=== PATIENT | female | born 1995 | race American Indian/Alaskan Native ===

== ENCOUNTER 2017-05-22 11:08 | Emergency (ER) | payer MEDICAID ==
[2017-05-22 11:12] VITALS: BP 111/67
[2017-05-22] MEDS ORDERED: BICILLIN L-A IM ONE (12:40)
--- NOTE | 2017-05-22 12:40 | Emergency Department Report ---
Chief Complaint: Sore Throat Stated Complaint: SORE THROAT Time Seen by Provider: 05/22/17 12:29 - HPI History of Present Illness: Patient is a 22-year-old female who is presenting with sore throat. Patient states her throat has been hurting for approximately a week. Patient has a minor cough is nonproductive. Patient has had chills but has not taken her temperature. Patient states she looked in her throat and saw white patches and was concerned and that's the reason she came in today. Patient has had difficulty swallowing the pain is 5 out of 10 in severity. Patient has no other complaints no nausea vomiting diarrhea body aches at this time. - ROS Review of Systems: History of systems is negative except for those elements in the HPI - Exam Vital Signs: Vital Signs 05/22/17 11:10 Temperature 98.2 F Pulse Rate 84 Respiratory 16 Rate Blood Pressure 111/67 O2 Sat by Pulse 99 Oximetry Physical Exam: Focused physical exam general patient is alert and oriented 3 in no acute distress HEENT patient has tonsillar swelling erythema with white patchy exudates as well as a petechiae on her hard palate. Anterior cervical lymph nodes are palpable. Lungs clear to auscultation bilaterally heart S1-S2 no murmurs gallops or rubs. Abdomen is soft nontender. Neuro exam is normal. MSE screening note: Focused history and physical exam performed. Due to findings the following was ordered: Patient be given Bicillin shot and will be discharged home ED Medical Decision Making - Medical Decision Making Patient is a 22-year-old female who is presenting with Centor score of 4 and will be empirically treated for strep ED Disposition for MSE Clinical Impression: Exudative pharyngitis Disposition: DC- TO HOME OR SELFCARE Is pt being admited?: No Does the pt Need Aspirin: No Condition: Fair Instructions: Strep Throat (ED) Prescriptions: HYDROcodone/APAP 7.5-325 [[place]] 15 ml PO Q4HR PRN #150 oz PRN Reason: Pain Referrals: JESSICA WILEY MD [Primary Care Provider] - 3-5 Days
[2017-05-22] MEDS ORDERED: DECADRON IM ONE (12:41)
== END 2017-05-22 13:16 | disposition home or self-care (01) ==
LOC: EDBD → ED 11:08
DX: J02.9 Acute pharyngitis, unspecified (principal); R05 Cough
CPT/HCPCS: 96372; 99282; J0561; J1100

== ENCOUNTER 2017-05-26 10:35 | Emergency (ER) | payer MEDICAID ==
[2017-05-26 10:43] VITALS: BP 102/63
--- NOTE | 2017-05-26 13:19 | Emergency Department Report ---
ED ENT HPI - General Chief complaint: Sore Throat Stated complaint: SORE THROAT Time Seen by Provider: 05/26/17 12:09 Source: patient Mode of arrival: Ambulatory Limitations: No Limitations - History of Present Illness Initial comments: This a 22-year-old female nontoxic, well nourished in appearance, no acute signs of distress presents to the ED with c/o of sore throat 1 week. Patient describes her throat as aching with level of 8 out of 10. Patient denies any difficulty breathing, drooling, hoarseness, fever, chills, nausea, vomiting, chest pain, shortness of breath, headache or stiff neck. Patient denies any drug allergies. Denies significant past medical history. MD complaint: sore throat -: Gradual, week(s) (1) Location: throat Severity: mild Severity scale (0 -10): 8 Quality: aching Consistency: constant Improves with: none Worsens with: swallowing Associated Symptoms: pain with swallowing, sore throat. denies: fever, cough, gum swelling, toothache, tinnitus, hearing loss, discharge from ear, rhinorrhea - Related Data Home Medications Medication Instructions Recorded Confirmed Last Taken Ranitidine HCl [Ranitidine 150mg 150 mg PO BID 06/10/14 06/10/14 06/09/14 Cap] Previous Rx's Medication Instructions Recorded Last Taken Type Benzonatate [Tessalon Perles] 100 mg PO Q8HR #20 capsule 06/10/14 Unknown Rx Naproxen [Naprosyn TAB] 500 mg PO BID #20 tablet 06/10/14 Unknown Rx HYDROcodone/APAP 7.5-325 [[place]] 15 ml PO Q4HR PRN #150 oz 05/22/17 Unknown Rx Amoxicillin/K Clav Tab [Augmentin 1 tab PO Q12HR #20 tab 05/26/17 Unknown Rx 875 mg] Nystas/Diphen/Xyl Visc/Mylanta 15 ml MM Q6H 10 Days udc 05/26/17 Unknown Rx [Magic Mouthwash] Allergies Allergy/AdvReac Type Severity Reaction Status Date / Time lactase [From Dairy Aid] Allergy Itching Verified 06/10/14 01:04 ED Dental HPI - General Chief complaint: Sore Throat Stated complaint: SORE THROAT Time Seen by Provider: 05/26/17 12:09 Source: patient Mode of arrival: Ambulatory Limitations: No Limitations - Related Data Home Medications Medication Instructions Recorded Confirmed Last Taken Ranitidine HCl [Ranitidine 150mg 150 mg PO BID 06/10/14 06/10/14 06/09/14 Cap] Previous Rx's Medication Instructions Recorded Last Taken Type Benzonatate [Tessalon Perles] 100 mg PO Q8HR #20 capsule 06/10/14 Unknown Rx Naproxen [Naprosyn TAB] 500 mg PO BID #20 tablet 06/10/14 Unknown Rx HYDROcodone/APAP 7.5-325 [[place]] 15 ml PO Q4HR PRN #150 oz 05/22/17 Unknown Rx Amoxicillin/K Clav Tab [Augmentin 1 tab PO Q12HR #20 tab 05/26/17 Unknown Rx 875 mg] Nystas/Diphen/Xyl Visc/Mylanta 15 ml MM Q6H 10 Days udc 05/26/17 Unknown Rx [Magic Mouthwash] Allergies Allergy/AdvReac Type Severity Reaction Status Date / Time lactase [From Dairy Aid] Allergy Itching Verified 06/10/14 01:04 ED Review of Systems ROS: Stated complaint: SORE THROAT Other details as noted in HPI Constitutional: denies: chills, fever Eyes: denies: eye pain, eye discharge, vision change ENT: throat pain. denies: ear pain Respiratory: denies: cough, shortness of breath, wheezing Cardiovascular: denies: chest pain, palpitations Endocrine: no symptoms reported Gastrointestinal: denies: abdominal pain, nausea, diarrhea Genitourinary: denies: urgency, dysuria, discharge Musculoskeletal: denies: back pain, joint swelling, arthralgia Skin: denies: rash, lesions Neurological: denies: headache, weakness, paresthesias Psychiatric: denies: anxiety, depression Hematological/Lymphatic: denies: easy bleeding, easy bruising ED Past Medical Hx - Past Medical History Previous Medical History?: Yes Additional medical history: -26 weeks gestation. Crohn's disease- takes Remicade [id number] - Surgical History Past Surgical History?: No - Social History Smoking Status: Never Smoker Substance Use Type: None - Medications Home Medications: Home Medications Medication Instructions Recorded Confirmed Last Taken Type Benzonatate [Tessalon Perles] 100 mg PO Q8HR #20 capsule 06/10/14 Unknown Rx Naproxen [Naprosyn TAB] 500 mg PO BID #20 tablet 06/10/14 Unknown Rx Ranitidine HCl [Ranitidine 150mg 150 mg PO BID 06/10/14 06/10/14 06/09/14 History Cap] HYDROcodone/APAP 7.5-325 [[place]] 15 ml PO Q4HR PRN #150 oz 05/22/17 Unknown Rx Amoxicillin/K Clav Tab [Augmentin 1 tab PO Q12HR #20 tab 05/26/17 Unknown Rx 875 mg] Nystas/Diphen/Xyl Visc/Mylanta 15 ml MM Q6H 10 Days udc 05/26/17 Unknown Rx [Magic Mouthwash] ED Physical Exam - General Limitations: No Limitations General appearance: alert, in no apparent distress - Head Head exam: Present: atraumatic, normocephalic, normal inspection - Eye Eye exam: Present: normal appearance, PERRL, EOMI. Absent: scleral icterus, conjunctival injection, nystagmus, periorbital swelling, periorbital tenderness Pupils: Present: normal accommodation - ENT ENT exam: Present: mucous membranes moist, TM's normal bilaterally, normal external ear exam - Expanded ENT Exam Expanded Ear exam: Present: normal external inspection Mouth exam: Present: normal external inspection, tongue normal. Absent: drooling, trismus, muffled voice, tongue elevation, laceration Teeth exam: Present: normal inspection Throat exam: Positive: tonsillar erythema, tonsillomegaly (2+), tonsillar exudate, other (Uvula midline. No abscess or swelling). Negative: R peritonsillar mass, L peritonsillar mass - Neck Neck exam: Present: normal inspection, full ROM. Absent: tenderness, meningismus, lymphadenopathy, thyromegaly - Respiratory Respiratory exam: Present: normal lung sounds bilaterally. Absent: respiratory distress, wheezes, rales, rhonchi, stridor, chest wall tenderness, accessory muscle use, decreased breath sounds, prolonged expiratory - Cardiovascular Cardiovascular Exam: Present: regular rate, normal rhythm, normal heart sounds. Absent: bradycardia, tachycardia, irregular rhythm, systolic murmur, diastolic murmur, rubs, gallop - GI/Abdominal GI/Abdominal exam: Present: soft, normal bowel sounds. Absent: distended, tenderness, guarding, rebound, rigid, diminished bowel sounds - Rectal Rectal exam: Present: deferred - Extremities Exam Extremities exam: Present: normal inspection, full ROM, normal capillary refill. Absent: tenderness, pedal edema, joint swelling, calf tenderness - Back Exam Back exam: Present: normal inspection, full ROM. Absent: tenderness, CVA tenderness (R), CVA tenderness (L), muscle spasm, paraspinal tenderness, vertebral tenderness, rash noted - Neurological Exam Neurological exam: Present: alert, oriented X3, CN II-XII intact, normal gait, reflexes normal - Psychiatric Psychiatric exam: Present: normal affect, normal mood - Skin Skin exam: Present: warm, dry, intact, normal color. Absent: rash ED Course Vital Signs 05/26/17 10:41 Temperature 98.3 F Pulse Rate 85 Respiratory 16 Rate Blood Pressure 102/63 O2 Sat by Pulse 100 Oximetry - Reevaluation(s) Reevaluation #1: 05/26/17 13:18 Patient is speaking in full sentences with no signs of distress noted. Critical care attestation.: If time is entered above; I have spent that time in minutes in the direct care of this critically ill patient, excluding procedure time. ED Disposition Clinical Impression: Tonsillitis with exudate Disposition: DC-01 TO HOME OR SELFCARE Is pt being admited?: No Does the pt Need Aspirin: No Condition: Stable Instructions: Tonsillitis (ED), Amoxicillin/Clavulanate Potassium (By mouth) Additional Instructions: Follow-up with a primary care doctor/ENT doctor in 3-5 days or if symptoms worsen and continue return to emergency room as soon as possible. Prescriptions: Amoxicillin/K Clav Tab [Augmentin 875 mg] 1 tab PO Q12HR #20 tab Nystas/Diphen/Xyl Visc/Mylanta [Magic Mouthwash] 15 ml MM Q6H 10 Days udc Referrals: JESSICA WILEY MD [Primary Care Provider] - 3-5 Days SHAILA MITCHELL MD [Staff Physician] - 3-5 Days MARTITA VALENTINE MD [Staff Physician] - 3-5 Days [facility] [Outside] - 3-5 Days [facility] [Outside] - 3-5 Days Forms: Work/School Release Form(ED)
== END 2017-05-26 13:40 | disposition home or self-care (01) ==
LOC: EDBD → ED 10:35
DX: J03.90 Acute tonsillitis, unspecified (principal)
CPT/HCPCS: 99282

== ENCOUNTER 2018-10-03 16:07 | Emergency (ER) | payer OTHER ==
[2018-10-03 17:21] LABS: Hematocrit 36.1 % (30.3-42.9); Hemoglobin 11.6 gm/dl (10.1-14.3); Mean Corpuscular HGB Conc 32 % (30-34); Mean Corpuscular Volume 78 fl (79-97); Platelet Count 318 K/mm3 (140-440); Red Blood Count 4.64 M/mm3 (3.65-5.03); Red Cell Distribution Width 15.4 % (13.2-15.2)
[2018-10-03 17:24] LABS: BUN/Creatinine Ratio 15; Blood Urea Nitrogen 15 mg/dL (7-17); Calcium 9.1 mg/dL (8.4-10.2); Hemolysis Index 0
--- NOTE | 2018-10-03 18:01 | Cat Scan Report ---
CT HEAD/BRAIN WO CON CLINICAL INDICATION: Female, 23 years of age. syncope, +LOC COMPARISON: None TECHNIQUE: Contiguous axial images were obtained from the vertex through the skull base.This CT exam was perform ed using one or more of the following dose reduction techniques: automated exposure control, adjustme nt of the mA and/or kV according to patient size, or use of iterative reconstruction technique. FINDINGS: No acute intracranial hemorrhage, midline shift, or extra-axial fluid collection. Ventricles and cis terns are normal in size and configuration for the patient's age. Frausto white differentiation is main tained. Calvarium is grossly intact. Visualized ocular globes are grossly unremarkable. Benign calc ification along the falx. Minimal mucosal thickening in the visualized ethmoid air cells. Mastoid air cells are clear. IMPRESSION: No grossly acute intracranial abnormality. This document is electronically signed by Carlos Hernandes DO., October 03 2018 05:59:11 PM ET
[2018-10-03] MEDS ORDERED: ZOFRAN ODT PO ONE (19:32)
[2018-10-03 20:00] LABS: Bilirubin,Urine NEG (Negative); Blood,Urine NEG (Negative); Color,Urine Yellow (Yellow); Mucus,Urine FEW /HPF; Protein,Urine <15 mg/dL mg/dL (Negative)
[2018-10-03 20:05] LABS: HCG Qualitative,Urine Negative (Negative)
--- NOTE | 2018-10-03 20:08 | Emergency Department Report ---
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 last Marijuana use was this am. there is no cp no n/v no dizziness or lightheadedness at this time. Onset/Timin -: hour(s) Radiation: non-radiation Severity scale (0 -10): 0 Improves with: rest Worsens with: movement Associated Symptoms: other (dizziness ) Treatments Prior to Arrival: none - Related Data Previous Rx's Medication Instructions Recorded Last Taken Type Ranitidine HCl [Zantac 150 MG TAB] 150 mg PO DAILY #30 tablet 05/13/18 Unknown Rx predniSONE [Deltasone] 10 mg PO QDAY #5 tab 05/13/18 Unknown Rx Fluticasone [Flonase] 1 spray NS QDAY #1 bottle 10/03/18 Unknown Rx Loratadine 10 mg PO DAILY #30 capsule 10/03/18 Unknown Rx Allergies Allergy/AdvReac Type Severity Reaction Status Date / Time lactase [From Dairy Aid] Allergy Itching Verified 10/03/18 16:08 ED Review of Systems ROS: Stated complaint: SYNCOPY Other details as noted in HPI Constitutional: malaise. denies: chills, fever Eyes: denies: eye pain, eye discharge, vision change ENT: as per HPI Respiratory: denies: cough, shortness of breath, wheezing Cardiovascular: denies: chest pain, palpitations Endocrine: no symptoms reported Gastrointestinal: denies: abdominal pain, nausea, vomiting, diarrhea Genitourinary: denies: urgency, dysuria, discharge, abnormal menses, dyspareunia Musculoskeletal: denies: back pain, joint swelling, arthralgia Skin: denies: rash, lesions Neurological: denies: headache, weakness, paresthesias, vertigo Psychiatric: denies: anxiety, depression Hematological/Lymphatic: denies: easy bleeding, easy bruising ED Past Medical Hx - Past Medical History Additional medical history: Crohn's - Surgical History Additional Surgical History: eyes - Social History Smoking Status: Never Smoker Substance Use Type: Marijuana - Medications Home Medications: Home Medications Medication Instructions Recorded Confirmed Last Taken Type Ranitidine HCl [Zantac 150 MG TAB] 150 mg PO DAILY #30 tablet 05/13/18 Unknown Rx predniSONE [Deltasone] 10 mg PO QDAY #5 tab 05/13/18 Unknown Rx Fluticasone [Flonase] 1 spray NS QDAY #1 bottle 10/03/18 Unknown Rx Loratadine 10 mg PO DAILY #30 capsule 10/03/18 Unknown Rx ED Physical Exam - General Limitations: No Limitations General appearance: alert, in no apparent distress - Head Head exam: Present: atraumatic, normocephalic - Eye Eye exam: Present: normal appearance, PERRL, EOMI Pupils: Present: normal accommodation - ENT ENT exam: Present: normal orophraynx, mucous membranes moist, TM's normal bila terally, normal external ear exam - Neck Neck exam: Present: normal inspection, full ROM. Absent: tenderness, meningismus, lymphadenopathy, thyromegaly - Respiratory Respiratory exam: Present: normal lung sounds bilaterally. Absent: respiratory distress, wheezes, stridor, chest wall tenderness - Cardiovascular Cardiovascular Exam: Present: regular rate, normal rhythm, normal heart sounds. Absent: systolic murmur, diastolic murmur, rubs, gallop - GI/Abdominal GI/Abdominal exam: Present: soft, normal bowel sounds. Absent: tenderness, br uit, hernia - Rectal Rectal exam: Present: deferred - Extremities Exam Extremities exam: Present: normal inspection, full ROM, normal capillary refill. Absent: tenderness, pedal edema, joint swelling, calf tenderness - Back Exam Back exam: Present: normal inspection, full ROM. Absent: tenderness, CVA tenderness (R), CVA tenderness (L), muscle spasm, paraspinal tenderness, verteb ral tenderness, rash noted - Neurological Exam Neurological exam: Present: alert, oriented X3, CN II-XII intact, normal gait, reflexes normal - Expanded Neurological Exam Expanded Patient oriented to: Present: person, place, time Speech: Present: fluid speech Cranial nerves: EOM's Intact: Normal, Gag Reflex: Normal, Tongue Deviation: Normal, Nystagmus: Normal, Facial Sensation: Normal, Facial Palsy with Forehead Movement: Normal Cerebellar function: Finger to Nose: Normal, Heel to Conner: Normal, Romberg: Normal Upper motor neuron: Tres Neglect: Normal, Pronator Drift: Normal, Babinski Sign: Normal, Sensory Extinction: Normal Sensory exam: Upper Extremity Light Touch: Normal, Upper Extremity Pin Prick: Normal, Upper Extremity Temperature: Normal, UE 2 Point Discrimination: Normal, Lower Extremity Light Touch: Normal, Lower Extremity Pin Prick: Normal, Lower Extremity Temperature: Normal, LE 2 Point Discrimination: Normal Motor strength exam: RUE: 5, LUE: 5, RLE: 5, LLE: 5 DTR: bicep (R): 2+, bicep (L): 2+, ankle (R): 2+, ankle (L): 2+ Best Eye Response (Jerry): (4) open spontaneously Best Motor Response (Jerry): (6) obeys commands Best Verbal Response ([place]): (5) oriented [place] Total: 15 - Psychiatric Psychiatric exam: Present: normal affect, normal mood - Skin Skin exam: Present: warm, dry, intact, normal color. Absent: rash ED Course Vital Signs 10/03/18 16:20 Temperature 97.7 F Pulse Rate 92 H Respiratory 18 Rate Blood Pressure 119/63 ED Medical Decision Making - Lab Data Result diagrams: 10/03/18 16:51 10/03/18 16:51 Labs 10/03/18 10/03/18 10/03/18 16:51 16:51 19:36 WBC 9.3 RBC 4.64 Hgb 11.6 Hct 36.1 MCV 78 L MCH 25 L MCHC 32 RDW 15.4 H Plt Count 318 Sodium 140 Potassium 3.9 Chloride 104.3 Carbon Dioxide 25 Anion Gap 15 BUN 15 Creatinine 1.0 Estimated GFR > 60 BUN/Creatinine Ratio 15 Glucose 65 Calcium 9.1 Urine Color Yellow Urine Turbidity Slightly-cloudy Urine pH 7.0 Ur Specific [place] 1.023 Urine Protein <15 mg/dl Urine Glucose (UA) Neg Urine Ketones Neg Urine Blood Neg Urine Nitrite Neg Urine Bilirubin Neg Urine Urobilinogen 2.0 Ur Leukocyte Esterase Neg Urine WBC (Auto) 3.0 Urine RBC (Auto) 1.0 U Epithel Cells (Auto) 2.0 Urine Mucus Few Urine HCG, Qual Negative - EKG Data EKG shows normal: sinus rhythm, axis, intervals, QRS complexes, ST-T waves Rate: normal - EKG Data When compared to previous EKG there are: previous EKG unavailable Interpretation: normal EKG (ekg interp by ed attending NSR no ST Elevated [place], no ectopy) - Radiology Data Radiology results: report reviewed, image reviewed Findings [facility] [address] [place] [address] Cat Scan Report Signed Patient: DEEMTRICE FLORES MR#: [id number] : 1995 Acct:[id number] Age/Sex: 23 / F ADM Date: 10/03/18 Loc: ED Attending Dr: Ordering Physician: MERISSA URIARTE MD Date of Service: 10/03/18 Procedure(s): CT head/brain wo con Accession Number(s): [id number] cc: MERISSA URIARTE MD CT HEAD/BRAIN WO CON CLINICAL INDICATION: Female, 23 years of age. syncope, +LOC COMPARISON: None TECHNIQUE: Contiguous axial images were obtained from the vertex through the skull base.This CT exam was performed using one or more of the following dose reduction techniques: automated exposure control, adjustment of the mA and/or kV according to patient size, or use of iterative reconstruction technique. FINDINGS: No acute intracranial hemorrhage, midline shift, or extra-axial fluid collection. Ventricles and cisterns are normal in size and configuration for the patient's age. Frausto white differentiation is maintained. Calvarium is grossly intact. Visualized ocular globes are grossly unremarkable. Benign calcification along the falx. Minimal mucosal thickening in the visualized ethmoid air cells. Mastoid air cells are clear. IMPRESSION: No grossly acute intracranial abnormality. This document is electronically signed by Carlos Hernandes DO., October 03 2018 05:59:11 PM ET Transcribed By: LMA Dictated By: NELSON HERNANDES MD Electronically Authenticated By: NELSON HERNANDES MD Signed Date/Time: 10/03/181800 DD/ 54 TD/TT: 10/03/181754 - Medical Decision Making CT is normal no mass no bleed no acute abnormalities EKG is normal sinus rhythm no ST elevated MN no ectopy, normal hCG is negative UA is normal, neuro exam is normal unremarkable, ENT exam mild turbinate erythema with some clear postnasal drip there is no fever no chills, plan: pt advised to stop Marijuana abuse , flonase, loratadine for rhinitis,follow up with pcp in 2-3 days given referral to [facility] in 2-3 days pt is currently a/o x 3 ambulatory with steady gait, no dizziness no lightheadedness no n/v , no abd pain . Critical care attestation.: If time is entered above; I have spent that time in minutes in the direct care of this critically ill patient, excluding procedure time. ED Disposition Clinical Impression: Near syncope Allergic rhinitis Qualifiers: Allergic rhinitis trigger: unspecified Allergic rhinitis seasonality: un specified Qualified Code(s): J30.9 - Allergic rhinitis, unspecified Disposition: DC- TO HOME OR SELFCARE Is pt being admited?: No Does the pt Need Aspirin: No Condition: Stable Instructions: Allergic Rhinitis (ED), Near Syncope (ED) Prescriptions: Fluticasone [Flonase] 1 spray NS QDAY #1 bottle Loratadine 10 mg PO DAILY #30 capsule Referrals: [facility] [Outside] - 3-5 Days Forms: Work/School Release Form(ED) Time of Disposition: 20:28
[2018-10-03 20:45] VITALS: BP 104/58
== END 2018-10-03 20:44 | disposition home or self-care (01) ==
LOC: ED 16:07
DX: J30.9 Allergic rhinitis, unspecified (principal); R55 Syncope and collapse; F12.10 Cannabis abuse, uncomplicated; Z91.011 Allergy to milk products
CPT/HCPCS: 36415; 70450; 80048; 81001; 81025; 85027; 93005; 93010; Q0162

== ENCOUNTER 2018-10-28 15:34 | Emergency (ER) | payer SELFPAY ==
[2018-10-28 15:41] VITALS: BP 113/70
--- NOTE | 2018-10-28 15:41 | Emergency Department Report ---
Blank Doc - Documentation Documentation: This is a 23-year-old female that presents with right facial swelling. Patient stated that 1 week ago she bit her cheek and now has these symptoms. This initial assessment/diagnostic orders/clinical plan/treatment(s) is/are subject to change based on patient's health status, clinical progression and re- assessment by fellow clinical providers in the ED. Further treatment and workup at subsequent clinical providers discretion. Patient/guardians urged not to elope from the ED as their condition may be serious if not clinically assessed and managed. Initial orders include: 1- Patient sent to [facility] for further evaluation and treatment 2- labs for possible CT scan
[2018-10-28 16:13] LABS: Basophils % (Auto) 0.3 % (0.0-1.8); Eosinophils # (Auto) 0.2 K/mm3 (0.0-0.4); Eosinophils % (Auto) 1.5 % (0.0-4.3); Hematocrit 34.4 % (30.3-42.9); Hemoglobin 11.2 gm/dl (10.1-14.3); Lymphocytes # (Auto) 1.4 K/mm3 (1.2-5.4); Lymphocytes % (Auto) 14.6 % (13.4-35.0); Mean Corpuscular HGB Conc 33 % (30-34); Mean Corpuscular Volume 78 fl (79-97); Monocytes # (Auto) 0.7 K/mm3 (0.0-0.8); Monocytes % (Auto) 7.1 % (0.0-7.3); Platelet Count 319 K/mm3 (140-440); Red Blood Count 4.42 M/mm3 (3.65-5.03); Red Cell Distribution Width 15.9 % (13.2-15.2)
[2018-10-28 16:29] LABS: BUN/Creatinine Ratio 21; Blood Urea Nitrogen 17 mg/dL (7-17); Calcium 8.7 mg/dL (8.4-10.2); Hemolysis Index 1
--- NOTE | 2018-10-28 17:21 | Emergency Department Report ---
ED ENT HPI - General Chief complaint: Dental/Oral Stated complaint: FACIAL SWELLING Time Seen by Provider: 10/28/18 15:37 Source: patient Mode of arrival: Ambulatory Limitations: No Limitations - History of Present Illness -: week(s) - Related Data Previous Rx's Medication Instructions Recorded Last Taken Type Ranitidine HCl [Zantac 150 MG TAB] 150 mg PO DAILY #30 tablet 05/13/18 Unknown Rx predniSONE [Deltasone] 10 mg PO QDAY #5 tab 05/13/18 Unknown Rx Fluticasone [Flonase] 1 spray NS QDAY #1 bottle 10/03/18 Unknown Rx Loratadine 10 mg PO DAILY #30 capsule 10/03/18 Unknown Rx Acetaminophen [Acetaminophen 8 650 mg PO Q8H PRN #24 tablet.er 10/28/18 Unknown Rx Hour] Amoxicillin [Trimox CAP] 500 mg PO Q8H #28 capsule 10/28/18 Unknown Rx Allergies Allergy/AdvReac Type Severity Reaction Status Date / Time lactase [From Dairy Aid] Allergy Itching Verified 10/28/18 15:35 ED Dental HPI - General Chief complaint: Dental/Oral Stated complaint: FACIAL SWELLING Time Seen by Provider: 10/28/18 15:37 Source: patient Mode of arrival: Ambulatory Limitations: No Limitations - Related Data Previous Rx's Medication Instructions Recorded Last Taken Type Ranitidine HCl [Zantac 150 MG TAB] 150 mg PO DAILY #30 tablet 05/13/18 Unknown Rx predniSONE [Deltasone] 10 mg PO QDAY #5 tab 05/13/18 Unknown Rx Fluticasone [Flonase] 1 spray NS QDAY #1 bottle 10/03/18 Unknown Rx Loratadine 10 mg PO DAILY #30 capsule 10/03/18 Unknown Rx Acetaminophen [Acetaminophen 8 650 mg PO Q8H PRN #24 tablet.er 10/28/18 Unknown Rx Hour] Amoxicillin [Trimox CAP] 500 mg PO Q8H #28 capsule 10/28/18 Unknown Rx Allergies Allergy/AdvReac Type Severity Reaction Status Date / Time lactase [From Dairy Aid] Allergy Itching Verified 10/28/18 15:35 ED Review of Systems ROS: Stated complaint: FACIAL SWELLING Other details as noted in HPI ED Past Medical Hx - Past Medical History Additional medical history: Crohn's - Surgical History Additional Surgical History: eyes - Social History Smoking Status: Current Every Day Smoker Substance Use Type: Marijuana - Medications Home Medications: Home Medications Medication Instructions Recorded Confirmed Last Taken Type Ranitidine HCl [Zantac 150 MG TAB] 150 mg PO DAILY #30 tablet 05/13/18 Unknown Rx predniSONE [Deltasone] 10 mg PO QDAY #5 tab 05/13/18 Unknown Rx Fluticasone [Flonase] 1 spray NS QDAY #1 bottle 10/03/18 Unknown Rx Loratadine 10 mg PO DAILY #30 capsule 10/03/18 Unknown Rx Acetaminophen [Acetaminophen 8 650 mg PO Q8H PRN #24 tablet.er 10/28/18 Unknown Rx Hour] Amoxicillin [Trimox CAP] 500 mg PO Q8H #28 capsule 10/28/18 Unknown Rx ED Physical Exam - General Limitations: No Limitations ED Course Vital Signs 10/28/18 10/28/18 15:39 17:01 Temperature 98.1 F Pulse Rate 81 Respiratory 18 18 Rate Blood Pressure 113/70 O2 Sat by Pulse 99 Oximetry ED Medical Decision Making - Lab Data Result diagrams: 10/28/18 15:50 10/28/18 15:50 Critical care attestation.: If time is entered above; I have spent that time in minutes in the direct care of this critically ill patient, excluding procedure time. ED Disposition Clinical Impression: Canker sore, Infection of mouth Disposition: DC-01 TO HOME OR SELFCARE Is pt being admited?: No Does the pt Need Aspirin: No Condition: Stable Instructions: Canker Sores (ED) Additional Instructions: Complete antibiotics as prescribed pain medication as needed. Follow-up which her primary care provider or dentist. Prescriptions: Acetaminophen [Acetaminophen 8 Hour] 650 mg PO Q8H PRN #24 tablet.er PRN Reason: Pain , Severe (7-10) Amoxicillin [Trimox CAP] 500 mg PO Q8H #28 capsule Referrals: [facility] [Provider Group] - 3-5 Days
== END 2018-10-28 18:06 | disposition home or self-care (01) ==
LOC: ED 15:34
DX: K12.0 Recurrent oral aphthae (principal); F17.200 Nicotine dependence, unspecified, uncomplicated; F12.10 Cannabis abuse, uncomplicated; Z91.011 Allergy to milk products
CPT/HCPCS: 36415; 80048; 84703; 85025; 99283

== ENCOUNTER 2018-12-01 12:17 | Emergency (ER) | payer OTHER ==
--- NOTE | 2018-12-01 12:24 | Event Note ---
ED Screening Note ED Screening Note: l toe pain This initial assessment/diagnostic orders/clinical plan/treatment(s) is/are subject to change based on patients health status, clinical progression and re- assessment by fellow clinical providers in the ED. Further treatment and workup at subsequent clinical providers discretion. Patient/guardian urged not to elope from the ED as their condition may be serious if not clinically assessed and managed. Initial orders include:
--- NOTE | 2018-12-01 12:49 | XRay Report ---
LEFT FOOT: Trauma, pain. The bony architecture is intact. Bony alignment is normal. No soft tissue abnormalities are seen. The joint spaces appear preserved. IMPRESSION: Normal left foot.
--- NOTE | 2018-12-01 13:18 | Emergency Department Report ---
ED Back Pain/Injury HPI - General Chief Complaint: Extremity Injury, Lower Stated Complaint: LFT TOE PAIN Time Seen by Provider: 12/01/18 12:22 Source: patient Limitations: No Limitations - Related Data Previous Rx's Medication Instructions Recorded Last Taken Type Ranitidine HCl [Zantac 150 MG TAB] 150 mg PO DAILY #30 tablet 05/13/18 Unknown Rx predniSONE [Deltasone] 10 mg PO QDAY #5 tab 05/13/18 Unknown Rx Fluticasone [Flonase] 1 spray NS QDAY #1 bottle 10/03/18 Unknown Rx Loratadine 10 mg PO DAILY #30 capsule 10/03/18 Unknown Rx Acetaminophen [Acetaminophen 8 650 mg PO Q8H PRN #24 tablet.er 10/28/18 Unknown Rx Hour] Amoxicillin [Trimox CAP] 500 mg PO Q8H #28 capsule 10/28/18 Unknown Rx Allergies Allergy/AdvReac Type Severity Reaction Status Date / Time lactase [From Dairy Aid] Allergy Itching Verified 10/28/18 15:35 ED Review of Systems ROS: Stated complaint: LFT TOE PAIN Other details as noted in HPI Comment: All other systems reviewed and negative ED Past Medical Hx - Past Medical History Crohn's Family history: no significant family history ED Back Pain Physical Exam - Exam General: Vital signs noted. No distress. Alert and acting appropriately. WDWN patient in NAD VS per RN flow sheet Alert and oriented to person, place and time. S1-S2. No S3 or S4. No systolic or diastolic murmur. No JVD. No pitting edema. Lungs clear to auscultation bilaterally anteriorly and posteriorly. Abdomen soft nontender bowel sounds X4 Moves all extremities well. Mood and affect appropriate. Back/Abdomen: No Abdominal Tenderness, No Perithoracic Tenderness, No Perilumbar Tenderness, No Sacroiliac Tenderness, No Flank Tenderness, No Straight Leg Raise Pain Neuro: Yes Normal Sensation, Yes Normal DTR's, Yes Normal Gait, No Motor Weakness Ed Back Pain Tests - Tests Tests: Normal X Rays ED Medical Decision Making - Radiology Data Radiology results: report reviewed, image reviewed - Medical Decision Making XRAY NEG FOR FX EDUCATED ON CONTUSION CARE DC HOME WITH DC PLAN OF CARE VS NORMAL RN ASKED TO DOCUMENT IN EMR NEUROVASC INTACT. NO SUBUNGAL HEMATOMA - Differential Diagnosis RO FX Critical care attestation.: If time is entered above; I have spent that time in minutes in the direct care of this critically ill patient, excluding procedure time. ED Disposition Clinical Impression: Toe contusion Disposition: DC-01 TO HOME OR SELFCARE Is pt being admited?: No Does the pt Need Aspirin: No Condition: Stable Instructions: Contusion in Adults (ED) Additional Instructions: motrin or tylenol for pain ice rest elevate ortho shoe for comfort Referrals: SHLOMO ASCENCIO MD [Primary Care Provider] - 3-5 Days Time of Disposition: 13:17
== END 2018-12-01 13:25 | disposition home or self-care (01) ==
LOC: ED 12:17
DX: S90.122A Contusion of left lesser toe(s) without damage to nail, initial encounter (principal); Z91.09 Other allergy status, other than to drugs and biological substances; X58.XXXA Exposure to other specified factors, initial encounter; Y93.89 Activity, other specified; Y92.89 Other specified places as the place of occurrence of the external cause; Y99.8 Other external cause status
CPT/HCPCS: 99283

== ENCOUNTER 2019-03-08 19:03 | Emergency (ER) | payer SELFPAY ==
[2019-03-08] MEDS ORDERED: SODIUM CHLORIDE 0.9% 1000 ML IV SOLN IV ONE (21:54)
[2019-03-08] MEDS ORDERED: methylPREDNISolone Sod Succinate 125 MG/2 ML INJ IV ONE (21:55)
[2019-03-08] MEDS ORDERED: ONDANSETRON 4 MG/2 ML INJ IV ONE (21:55)
[2019-03-08] MEDS ORDERED: IPRATROPIUM 0.02% NEBU 2.5 ML IH ONE (21:55)
[2019-03-08] MEDS ORDERED: ALBUTEROL 2.5 MG/3 ML NEBU IH ONE (21:55)
[2019-03-08 22:21] LABS: Basophils % (Auto) 0.2 % (0.0-1.8); Eosinophils # (Auto) 0.1 K/mm3 (0.0-0.4); Eosinophils % (Auto) 0.8 % (0.0-4.3); Hemoglobin 14.5 gm/dl (10.1-14.3); Lymphocytes # (Auto) 3.3 K/mm3 (1.2-5.4); Lymphocytes % (Auto) 20.6 % (13.4-35.0); Mean Corpuscular HGB Conc 32 % (30-34); Mean Corpuscular Volume 81 fl (79-97); Monocytes % (Auto) 5.9 % (0.0-7.3); Platelet Count 273 K/mm3 (140-440); Red Blood Count 5.65 M/mm3 (3.65-5.03); Red Cell Distribution Width 16.7 % (13.2-15.2)
[2019-03-08 23:37] LABS: Alanine Aminotransferase 25 units/L (7-56); Albumin 4.1 g/dL (3.9-5); BUN/Creatinine Ratio 10; Blood Urea Nitrogen 7 mg/dL (7-17); Calcium 8.6 mg/dL (8.4-10.2); Hemolysis Index 5
[2019-03-08 23:47] LABS: Bilirubin,Urine NEG (Negative); Blood,Urine NEG (Negative); Color,Urine Yellow (Yellow); Mucus,Urine FEW /HPF; Protein,Urine <15 mg/dL mg/dL (Negative); Urobilinogen,Urine < 2.0 mg/dL (<2.0)
--- NOTE | 2019-03-09 00:16 | XRay Report ---
CHEST 2 VIEWS INDICATION / CLINICAL INFORMATION: productive cough. COMPARISON: None available. FINDINGS: SUPPORT DEVICES: None. HEART / MEDIASTINUM: No significant abnormality. LUNGS / PLEURA: Patchy airspace disease in the right middle lobe likely representing pneumonia. No pn eumothorax. ADDITIONAL FINDINGS: No significant additional findings. IMPRESSION: 1. Right middle lobe pneumonia. Signer Name: Eladio Bravo MD Signed: 03/09/2019 12:12 AM Workstation Name: [email or web address]
--- NOTE | 2019-03-09 01:15 | Emergency Department Report ---
ED Shortness of Breath HPI - General Chief Complaint: Upper Respiratory Infection Stated Complaint: COUGH/CHEST PAIN/VOMIT Time Seen by Provider: 03/08/19 21:30 Source: patient Mode of arrival: Ambulatory Limitations: No Limitations - History of Present Illness Initial Comments: Patient is a 24-year-old female who is presenting with 3 days of productive cough. Patient had 3 episodes of nausea and vomiting. The patient states she has some upper chest pain with cough. Patient states that she's had some fevers and chills as well. Cough is productive of clear to yellow sputum. Patient's denies sore throat neck stiffness and diarrhea or abdominal pain. - Related Data Previous Rx's Medication Instructions Recorded Last Taken Type predniSONE [Deltasone] 10 mg PO QDAY #5 tab 05/13/18 Unknown Rx raNITIdine HCl [Zantac 150 MG TAB] 150 mg PO DAILY #30 tablet 05/13/18 Unknown Rx Fluticasone [Flonase] 1 spray NS QDAY #1 bottle 10/03/18 Unknown Rx Loratadine 10 mg PO DAILY #30 capsule 10/03/18 Unknown Rx Acetaminophen [Acetaminophen 8 650 mg PO Q8H PRN #24 tablet.er 10/28/18 Unknown Rx Hour] Amoxicillin [Trimox CAP] 500 mg PO Q8H #28 capsule 10/28/18 Unknown Rx Benzonatate [Tessalon Perles] 100 mg PO Q8HR #10 capsule 03/09/19 Unknown Rx Ondansetron [Zofran Odt] 4 mg PO Q8HR #10 tab.rapdis 03/09/19 Unknown Rx levoFLOXacin [Levaquin TAB] 500 mg PO QDAY #6 tablet 03/09/19 Unknown Rx predniSONE [Deltasone] 20 mg PO QDAY #5 tab 03/09/19 Unknown Rx Allergies Allergy/AdvReac Type Severity Reaction Status Date / Time lactase [From Dairy Aid] Allergy Itching Verified 10/28/18 15:35 ED Review of Systems ROS: Stated complaint: COUGH/CHEST PAIN/VOMIT Other details as noted in HPI Comment: All other systems reviewed and negative ED Past Medical Hx - Past Medical History Additional medical history: Crohn's - Surgical History Additional Surgical History: eyes - Social History Smoking Status: Never Smoker Substance Use Type: None - Medications Home Medications: Home Medications Medication Instructions Recorded Confirmed Last Taken Type predniSONE [Deltasone] 10 mg PO QDAY #5 tab 05/13/18 Unknown Rx raNITIdine HCl [Zantac 150 MG TAB] 150 mg PO DAILY #30 tablet 05/13/18 Unknown Rx Fluticasone [Flonase] 1 spray NS QDAY #1 bottle 10/03/18 Unknown Rx Loratadine 10 mg PO DAILY #30 capsule 10/03/18 Unknown Rx Acetaminophen [Acetaminophen 8 650 mg PO Q8H PRN #24 tablet.er 10/28/18 Unknown Rx Hour] Amoxicillin [Trimox CAP] 500 mg PO Q8H #28 capsule 10/28/18 Unknown Rx Benzonatate [Tessalon Perles] 100 mg PO Q8HR #10 capsule 03/09/19 Unknown Rx Ondansetron [Zofran Odt] 4 mg PO Q8HR #10 tab.rapdis 03/09/19 Unknown Rx levoFLOXacin [Levaquin TAB] 500 mg PO QDAY #6 tablet 03/09/19 Unknown Rx predniSONE [Deltasone] 20 mg PO QDAY #5 tab 03/09/19 Unknown Rx ED Physical Exam - General Limitations: No Limitations General appearance: alert, in no apparent distress - Head Head exam: Present: atraumatic, normocephalic - Eye Eye exam: Present: normal appearance, PERRL, EOMI - ENT ENT exam: Present: normal orophraynx, mucous membranes moist - Neck Neck exam: Present: normal inspection - Respiratory Respiratory exam: Present: normal lung sounds bilaterally, wheezes, rhonchi. Absent: respiratory distress, rales, stridor - Cardiovascular Cardiovascular Exam: Present: normal rhythm, tachycardia, normal heart sounds. Absent: systolic murmur, diastolic murmur, rubs, gallop - GI/Abdominal GI/Abdominal exam: Present: soft, normal bowel sounds. Absent: distended, tenderness, guarding, rebound, rigid - Extremities Exam Extremities exam: Present: normal inspection - Back Exam Back exam: Present: normal inspection - Neurological Exam Neurological exam: Present: alert, oriented X3 - Psychiatric Psychiatric exam: Present: normal affect, normal mood - Skin Skin exam: Present: warm, dry, intact, normal color. Absent: rash ED Course Vital Signs 03/08/19 03/09/19 21:22 00:56 Pulse Rate 114 H 96 H Respiratory 14 14 Rate Blood Pressure 124/81 117/84 [Left] O2 Sat by Pulse 96 100 Oximetry ED Medical Decision Making - Lab Data Result diagrams: 03/08/19 22:00 03/08/19 22:49 Lab Results 03/08/19 03/08/19 03/08/19 Range/Units 22:00 22:00 22:49 WBC 16.2 H (4.5-11.0) K/mm3 RBC 5.65 H (3.65-5.03) M/mm3 Hgb 14.5 H (10.1-14.3) gm/dl Hct 46.0 H (30.3-42.9) % MCV 81 (79-97) fl MCH 26 L (28-32) pg MCHC 32 (30-34) % RDW 16.7 H (13.2-15.2) % Plt Count 273 (140-440) K/mm3 Lymph % (Auto) 20.6 (13.4-35.0) % Ferry % (Auto) 5.9 (0.0-7.3) % Eos % (Auto) 0.8 (0.0-4.3) % Baso % (Auto) 0.2 (0.0-1.8) % Lymph # 3.3 (1.2-5.4) K/mm3 Ferry # 1.0 H (0.0-0.8) K/mm3 Eos # 0.1 (0.0-0.4) K/mm3 Baso # 0.0 (0.0-0.1) K/mm3 Seg Neutrophils % 72.5 H (40.0-70.0) % Seg Neutrophils # 11.8 H (1.8-7.7) K/mm3 Sodium 138 (137-145) mmol/L Potassium 3.4 L (3.6-5.0) mmol/L Chloride 101.1 (98-107) mmol/L Carbon Dioxide 24 (22-30) mmol/L Anion Gap 16 mmol/L BUN 7 (7-17) mg/dL Creatinine 0.7 (0.7-1.2) mg/dL Estimated GFR > 60 ml/min BUN/Creatinine Ratio 10 % Glucose 98 (65-100) mg/dL Lactic Acid 3.10 H* (0.7-2.0) mmol/L Calcium 8.6 (8.4-10.2) mg/dL Total Bilirubin 0.60 (0.1-1.2) mg/dL AST 21 (5-40) units/L ALT 25 (7-56) units/L Alkaline Phosphatase 85 (35-129) units/L Total Protein 7.2 (6.3-8.2) g/dL Albumin 4.1 (3.9-5) g/dL Albumin/Globulin Ratio 1.3 % Urine Color (Yellow) Urine Turbidity (Clear) Urine pH (5.0-7.0) Ur Specific Sylvester (1.003-1.030) Urine Protein (Negative) mg/dL Urine Glucose (UA) (Negative) mg/dL Urine Ketones (Negative) mg/dL Urine Blood (Negative) Urine Nitrite (Negative) Urine Bilirubin (Negative) Urine Urobilinogen (<2.0) mg/dL Ur Leukocyte Esterase (Negative) Urine WBC (Auto) (0.0-6.0) /HPF Urine RBC (Auto) (0.0-6.0) /HPF U Epithel Cells (Auto) (0-13.0) /HPF Urine Mucus /HPF 03/08/19 03/08/19 Range/Units 23:08 23:23 WBC (4.5-11.0) K/mm3 RBC (3.65-5.03) M/mm3 Hgb (10.1-14.3) gm/dl Hct (30.3-42.9) % MCV (79-97) fl MCH (28-32) pg MCHC (30-34) % RDW (13.2-15.2) % Plt Count (140-440) K/mm3 Lymph % (Auto) (13.4-35.0) % Ferry % (Auto) (0.0-7.3) % Eos % (Auto) (0.0-4.3) % Baso % (Auto) (0.0-1.8) % Lymph # (1.2-5.4) K/mm3 Ferry # (0.0-0.8) K/mm3 Eos # (0.0-0.4) K/mm3 Baso # (0.0-0.1) K/mm3 Seg Neutrophils % (40.0-70.0) % Seg Neutrophils # (1.8-7.7) K/mm3 Sodium (137-145) mmol/L Potassium (3.6-5.0) mmol/L Chloride (98-107) mmol/L Carbon Dioxide (22-30) mmol/L Anion Gap mmol/L BUN (7-17) mg/dL Creatinine (0.7-1.2) mg/dL Estimated GFR ml/min BUN/Creatinine Ratio % Glucose (65-100) mg/dL Lactic Acid 2.40 H* (0.7-2.0) mmol/L Calcium (8.4-10.2) mg/dL Total Bilirubin (0.1-1.2) mg/dL AST (5-40) units/L ALT (7-56) units/L Alkaline Phosphatase (35-129) units/L Total Protein (6.3-8.2) g/dL Albumin (3.9-5) g/dL Albumin/Globulin Ratio % Urine Color Yellow (Yellow) Urine Turbidity Clear (Clear) Urine pH 6.0 (5.0-7.0) Ur Specific Sylvester 1.016 (1.003-1.030) Urine Protein <15 mg/dl (Negative) mg/dL Urine Glucose (UA) Neg (Negative) mg/dL Urine Ketones Neg (Negative) mg/dL Urine Blood Neg (Negative) Urine Nitrite Neg (Negative) Urine Bilirubin Neg (Negative) Urine Urobilinogen < 2.0 (<2.0) mg/dL Ur Leukocyte Esterase Neg (Negative) Urine WBC (Auto) 1.0 (0.0-6.0) /HPF Urine RBC (Auto) 2.0 (0.0-6.0) /HPF U Epithel Cells (Auto) 7.0 (0-13.0) /HPF Urine Mucus Few /HPF - Radiology Data [facility] [address] [place] [address] XRay Report Signed Patient: DEMETRICE FLORES MR#: [id number] : 1995 Acct:[id number] Age/Sex: 24 / F ADM Date: 03/08/19 Loc: ED Attending Dr: Ordering Physician: ERIKA AUSTIN MD Date of Service: 03/08/19 Procedure(s): XR chest routine 2V Accession Number(s): [id number] cc: ERIKA AUSTIN MD Fluoro Time In Minutes: CHEST 2 VIEWS INDICATION / CLINICAL INFORMATION: productive cough. COMPARISON: None available. FINDINGS: SUPPORT DEVICES: None. HEART / MEDIASTINUM: No significant abnormality. LUNGS / PLEURA: Patchy airspace disease in the right middle lobe likely representing pneumonia. No pneumothorax. ADDITIONAL FINDINGS: No significant additional findings. IMPRESSION: 1. Right middle lobe pneumonia. Signer Name: Eladio Bravo MD Signed: 03/09/2019 12:12 AM Workstation Name: [email or web address] Transcribed By: DT Dictated By: Slade Bravo MD Electronically Authenticated By: Slade Bravo MD Signed Date/Time: 03/09/19 0012 - Medical Decision Making Patient received a neb treatment when she got to her home which did help with her wheezing. Patient's swelling is less short of breath. She is able to ambulate without descending. Patient does have a right middle lobe pneumonia started on Levaquin. Patient be discharged home Critical care attestation.: If time is entered above; I have spent that time in minutes in the direct care of this critically ill patient, excluding procedure time. ED Disposition Clinical Impression: Pneumonia Qualifiers: Pneumonia type: due to unspecified organism Laterality: right Lung location: middle lobe of lung Qualified Code(s): J18.1 - Lobar pneumonia, unspecified organism Disposition: TO HOME OR SELFCARE Is pt being admited?: No Does the pt Need Aspirin: No Condition: Stable Instructions: Bacterial Pneumonia (ED) Referrals: VINOD MILES MD [Staff Physician] - 7-10 days Forms: Work/School Release Form(ED) Time of Disposition: 01:17
[2019-03-09 02:32] VITALS: BP 100/53
== END 2019-03-09 02:30 | disposition home or self-care (01) ==
LOC: ED 19:03
DX: J18.1 Lobar pneumonia, unspecified organism (principal); Z91.09 Other allergy status, other than to drugs and biological substances
CPT/HCPCS: 36415; 71046; 80053; 81001; 82140; 85025; 87040; 96365; 96366; 96375; 99284; J1956; J2405; J2930; J7030

== ENCOUNTER 2019-05-25 20:11 | Emergency (ER) | payer SELFPAY ==
[2019-05-25 21:47] VITALS: BP 107/79
[2019-05-25] MEDS ORDERED: ONDANSETRON 4 MG ODT TAB PO ONE (21:48)
[2019-05-25] MEDS ORDERED: ONDANSETRON 4 MG ODT TAB ONE (21:52)
[2019-05-25 22:36] LABS: HCG Qualitative,Urine Negative (Negative)
[2019-05-25 22:39] LABS: Bacteria,Urine 1+ /HPF (Negative); Bilirubin,Urine NEG (Negative); Blood,Urine NEG (Negative); Color,Urine Amber (Yellow); Mucus,Urine 3+ /HPF; Urobilinogen,Urine < 2.0 mg/dL (<2.0)
[2019-05-25] MEDS ORDERED: FAMOTIDINE 20 MG/2 ML INJ IV ONE (23:23)
[2019-05-25] MEDS ORDERED: dexAMETHasone 20 MG/5 ML VIAL IV ONE (23:23)
[2019-05-25] MEDS ORDERED: METOCLOPRAMIDE 10 MG/2 ML INJ IV ONE (23:23)
[2019-05-25] MEDS ORDERED: SODIUM CHLORIDE 0.9% 1000 ML 1,000 ML IV ONE (23:23)
[2019-05-26] LABS: Hematocrit 37.4 % (30.3-42.9); Mean Corpuscular HGB Conc 32 % (30-34); Mean Corpuscular Volume 80 fl (79-97); Platelet Count 317 K/mm3 (140-440); Red Blood Count 4.68 M/mm3 (3.65-5.03); Red Cell Distribution Width 14.9 % (13.2-15.2)
[2019-05-26 00:17] LABS: Alanine Aminotransferase 11 units/L (7-56); Albumin 4.3 g/dL (3.9-5); BUN/Creatinine Ratio 19; Blood Urea Nitrogen 15 mg/dL (7-17); Calcium 9.7 mg/dL (8.4-10.2); Hemolysis Index 0
--- NOTE | 2019-05-26 01:08 | Emergency Department Report ---
ED Abdominal Pain HPI - General Chief Complaint: Abdominal Pain Stated Complaint: EMESIS Time Seen by Provider: 05/25/19 23:08 Source: patient Mode of arrival: Ambulatory Limitations: No Limitations - History of Present Illness Initial Comments: This is a 24-year-old female with a history of Crohn's disease 10 years who presents to ED complaining of lower generalized abdominal pain with vomiting for the past 4 days. Patient states that she had some unusual food. She denies fevers/chills/dysuria/vaginal discharge or any other symptoms. MD Complaint: abdominal pain - Related Data Previous Rx's Medication Instructions Recorded Last Taken Type predniSONE [Deltasone] 10 mg PO QDAY #5 tab 05/13/18 Unknown Rx Fluticasone [Flonase] 1 spray NS QDAY #1 bottle 10/03/18 Unknown Rx Loratadine 10 mg PO DAILY #30 capsule 10/03/18 Unknown Rx Acetaminophen [Acetaminophen 8 650 mg PO Q8H PRN #24 tablet.er 10/28/18 Unknown Rx Hour] Amoxicillin [Trimox CAP] 500 mg PO Q8H #28 capsule 10/28/18 Unknown Rx Benzonatate [Tessalon Perles] 100 mg PO Q8HR #10 capsule 03/09/19 Unknown Rx levoFLOXacin [Levaquin TAB] 500 mg PO QDAY #6 tablet 03/09/19 Unknown Rx predniSONE [Deltasone] 20 mg PO QDAY #5 tab 03/09/19 Unknown Rx Dicyclomine [Bentyl] 20 mg PO TID #100 ml 05/26/19 Unknown Rx Ondansetron [Zofran ODT TAB] 4 mg PO Q8HR #10 tab.rapdis 05/26/19 Unknown Rx raNITIdine HCl [Zantac] 150 mg PO DAILY #30 tablet 05/26/19 Unknown Rx Allergies Allergy/AdvReac Type Severity Reaction Status Date / Time lactase [From Dairy Aid] Allergy Itching Verified 10/28/18 15:35 NSAIDS (Non-Steroidal AdvReac Unknown Verified 05/25/19 21:49 Anti-Inflamma ED Review of Systems ROS: Stated complaint: EMESIS Other details as noted in HPI Comment: All other systems reviewed and negative ED Past Medical Hx - Past Medical History Previous Medical History?: Yes Additional medical history: Crohn's - Surgical History Additional Surgical History: eyes - Social History Smoking Status: Never Smoker Substance Use Type: Marijuana - Medications Home Medications: Home Medications Medication Instructions Recorded Confirmed Last Taken Type predniSONE [Deltasone] 10 mg PO QDAY #5 tab 05/13/18 Unknown Rx Fluticasone [Flonase] 1 spray NS QDAY #1 bottle 10/03/18 Unknown Rx Loratadine 10 mg PO DAILY #30 capsule 10/03/18 Unknown Rx Acetaminophen [Acetaminophen 8 650 mg PO Q8H PRN #24 tablet.er 10/28/18 Unknown Rx Hour] Amoxicillin [Trimox CAP] 500 mg PO Q8H #28 capsule 10/28/18 Unknown Rx Benzonatate [Tessalon Perles] 100 mg PO Q8HR #10 capsule 03/09/19 Unknown Rx levoFLOXacin [Levaquin TAB] 500 mg PO QDAY #6 tablet 03/09/19 Unknown Rx predniSONE [Deltasone] 20 mg PO QDAY #5 tab 03/09/19 Unknown Rx Dicyclomine [Bentyl] 20 mg PO TID #100 ml 05/26/19 Unknown Rx Ondansetron [Zofran ODT TAB] 4 mg PO Q8HR #10 tab.rapdis 05/26/19 Unknown Rx raNITIdine HCl [Zantac] 150 mg PO DAILY #30 tablet 05/26/19 Unknown Rx ED Physical Exam - General Limitations: No Limitations General appearance: alert, in no apparent distress - Head Head exam: Present: atraumatic, normocephalic - Eye Eye exam: Present: normal appearance - ENT ENT exam: Present: mucous membranes moist - Neck Neck exam: Present: normal inspection - Respiratory Respiratory exam: Present: normal lung sounds bilaterally. Absent: respiratory distress - Cardiovascular Cardiovascular Exam: Present: regular rate, normal rhythm. Absent: systolic murmur, diastolic murmur, rubs, gallop - GI/Abdominal GI/Abdominal exam: Present: soft, normal bowel sounds - Extremities Exam Extremities exam: Present: normal inspection - Back Exam Back exam: Present: normal inspection - Neurological Exam Neurological exam: Present: alert, oriented X3 - Psychiatric Psychiatric exam: Present: normal affect, normal mood - Skin Skin exam: Present: warm, dry, intact, normal color. Absent: rash ED Course Vital Signs 05/25/19 05/25/19 05/25/19 20:42 21:45 21:47 Temperature 98.4 F 98.4 F Pulse Rate 65 65 64 Respiratory 12 12 18 Rate Blood Pressure 112/59 112/59 Blood Pressure 107/79 [Left] O2 Sat by Pulse 99 100 100 Oximetry 05/26/19 01:34 Temperature Pulse Rate 57 L Respiratory 16 Rate Blood Pressure Blood Pressure [Left] O2 Sat by Pulse 100 Oximetry ED Medical Decision Making - Lab Data Result diagrams: 05/25/19 23:18 05/25/19 23:18 Laboratory Last Values WBC 13.0 K/mm3 (4.5-11.0) H 05/25/19 23:18 RBC 4.68 M/mm3 (3.65-5.03) 05/25/19 23:18 Hgb 12.0 gm/dl (10.1-14.3) 05/25/19 23:18 Hct 37.4 % (30.3-42.9) 05/25/19 23:18 MCV 80 fl (79-97) 05/25/19 23:18 MCH 26 pg (28-32) L 05/25/19 23:18 MCHC 32 % (30-34) 05/25/19 23:18 RDW 14.9 % (13.2-15.2) 05/25/19 23:18 Plt Count 317 K/mm3 (140-440) 05/25/19 23:18 Sodium 140 mmol/L (137-145) 05/25/19 23:18 Potassium 3.5 mmol/L (3.6-5.0) L 05/25/19 23:18 Chloride 101.9 mmol/L (98-107) 05/25/19 23:18 Carbon Dioxide 23 mmol/L (22-30) 05/25/19 23:18 Anion Gap 19 mmol/L 05/25/19 23:18 BUN 15 mg/dL (7-17) 05/25/19 23:18 Creatinine 0.8 mg/dL (0.7-1.2) 05/25/19 23:18 Estimated GFR > 60 ml/min 05/25/19 23:18 BUN/Creatinine Ratio 19 % 05/25/19 23:18 Glucose 97 mg/dL (65-100) 05/25/19 23:18 Calcium 9.7 mg/dL (8.4-10.2) 05/25/19 23:18 Total Bilirubin 0.50 mg/dL (0.1-1.2) 05/25/19 23:18 AST 15 units/L (5-40) 05/25/19 23:18 ALT 11 units/L (7-56) 05/25/19 23:18 Alkaline Phosphatase 77 units/L (35-129) 05/25/19 23:18 Total Protein 8.2 g/dL (6.3-8.2) 05/25/19 23:18 Albumin 4.3 g/dL (3.9-5) 05/25/19 23:18 Albumin/Globulin Ratio 1.1 % 05/25/19 23:18 Urine Color Coral (Yellow) 05/25/19 Unknown Urine Turbidity Cloudy (Clear) 05/25/19 Unknown Urine pH 6.0 (5.0-7.0) 05/25/19 Unknown Ur Specific [place] 1.034 (1.003-1.030) H 05/25/19 Unknown Urine Protein 30 mg/dl mg/dL (Negative) 05/25/19 Unknown Urine Glucose (UA) Neg mg/dL (Negative) 05/25/19 Unknown Urine Ketones 80 mg/dL (Negative) 05/25/19 Unknown Urine Blood Neg (Negative) 05/25/19 Unknown Urine Nitrite Neg (Negative) 05/25/19 Unknown Ur Reducing Substances Not Reportable 05/25/19 Unknown Urine Bilirubin Neg (Negative) 05/25/19 Unknown Urine Ictotest Not Reportable 05/25/19 Unknown Urine Urobilinogen < 2.0 mg/dL (<2.0) 05/25/19 Unknown Ur Leukocyte Esterase Neg (Negative) 05/25/19 Unknown Urine WBC (Auto) 5.0 /HPF (0.0-6.0) 05/25/19 Unknown Urine RBC (Auto) 6.0 /HPF (0.0-6.0) 05/25/19 Unknown U Epithel Cells (Auto) 20.0 /HPF (0-13.0) H 05/25/19 Unknown Urine Bacteria (Auto) 1+ /HPF (Negative) 05/25/19 Unknown Urine Mucus 3+ /HPF 05/25/19 Unknown Urine HCG, Qual Negative (Negative) 05/25/19 Unknown - Medical Decision Making This 24-year-old female presents with Crohn's flareup. CBC, CMP, urinalysis is obtained. Labs are within normal limits. Mildly elevated white count, secondary to the flare Patient received fluids, medication while in the ED. Patient reported feeling better prior to discharge. Discussed the patient to follow up with a gravity prospecting operator helper. Vital signs are normal. Patient is in no acute distress. Critical care attestation.: If time is entered above; I have spent that time in minutes in the direct care of this critically ill patient, excluding procedure time. ED Disposition Clinical Impression: Gastroenteritis, Crohn's colitis Disposition: TO HOME OR SELFCARE Is pt being admited?: No Does the pt Need Aspirin: No Condition: Stable Instructions: Crohn Disease (ED), Gastroenteritis (ED), Abdominal Pain (ED) Additional Instructions: Make sure to follow up with the primary care physician as discussed. Take all your medications as you've been prescribed. If you have any worsening symptoms or develop new symptoms please return to ED immediately. Prescriptions: Dicyclomine [Bentyl] 20 mg PO TID #100 ml raNITIdine HCl [Zantac] 150 mg PO DAILY #30 tablet Ondansetron [Zofran ODT TAB] 4 mg PO Q8HR #10 tab.rapdis Referrals: SHLOMO ASCENCIO MD [Primary Care Provider] - 3-5 Days [facility] [Provider Group] - 3-5 Days Forms: Accompanied Note, Work/School Release Form(ED) Time of Disposition: 01:14
== END 2019-05-26 01:33 | disposition home or self-care (01) ==
LOC: ED 20:11
DX: K52.9 Noninfective gastroenteritis and colitis, unspecified (principal); K50.90 Crohn's disease, unspecified, without complications; F12.10 Cannabis abuse, uncomplicated; Z79.899 Other long term (current) drug therapy; Z88.8 Allergy status to other drugs, medicaments and biological substances
CPT/HCPCS: 36415; 80053; 81001; 81025; 85027; 96361; 96374; 96375; 99283; J1100; J2765; J7030; Q0162

== ENCOUNTER 2019-07-08 10:05 | Emergency (ER) | payer SELFPAY ==
[2019-07-08 10:49] VITALS: BP 107/58
[2019-07-08] MEDS ORDERED: SODIUM CHLORIDE 0.9% 1000 ML 1,000 ML IV ONE (10:50)
[2019-07-08] MEDS ORDERED: ONDANSETRON 4 MG/2 ML INJ IV ONE (10:50)
--- NOTE | 2019-07-08 10:51 | Event Note ---
ED Screening Note ED Screening Note: 24 YO ILL APPEARING FEMALE COMES TO ER WITH ABD PAIN AND VOMITING; DRY HEAVES IN TRIAGE; WATERY STOOL; PALE; WRITHING IN PAIN IN TRIAGE DR SUN PM[facility] CHRONES RX BENTYL REMACAID PEPCID THC HAS LOST 30 POUNDS IN 2 MONTHS LMP CURRENT This initial assessment/diagnostic orders/clinical plan/treatment(s) is/are subject to change based on patients health status, clinical progression and re- assessment by fellow clinical providers in the ED. Further treatment and workup at subsequent clinical providers discretion. Patient/guardian urged not to elope from the ED as their condition may be serious if not clinically assessed and managed. Initial orders include: CBC/CMP UA/PREG
[2019-07-08 11:35] LABS: Basophils # (Auto) 0.1 K/mm3 (0.0-0.1); Basophils % (Auto) 0.9 % (0.0-1.8); Eosinophils % (Auto) 0.3 % (0.0-4.3); Hematocrit 34.8 % (30.3-42.9); Hemoglobin 11.4 gm/dl (10.1-14.3); Lymphocytes # (Auto) 1.2 K/mm3 (1.2-5.4); Lymphocytes % (Auto) 14.3 % (13.4-35.0); Mean Corpuscular HGB Conc 33 % (30-34); Mean Corpuscular Volume 79 fl (79-97); Monocytes # (Auto) 0.6 K/mm3 (0.0-0.8); Monocytes % (Auto) 6.7 % (0.0-7.3); Platelet Count 302 K/mm3 (140-440); Red Cell Distribution Width 15.9 % (13.2-15.2)
[2019-07-08 12:13] LABS: Alanine Aminotransferase 10 units/L (7-56); Albumin 4.3 g/dL (3.9-5); BUN/Creatinine Ratio 14; Blood Urea Nitrogen 13 mg/dL (7-17); Calcium 9.7 mg/dL (8.4-10.2); Hemolysis Index 3
[2019-07-08 12:18] LABS: Bilirubin,Direct < 0.2 mg/dL (0-0.2)
== END 2019-07-08 12:25 | disposition left against medical advice (07) ==
LOC: ED 10:05
DX: R10.9 Unspecified abdominal pain (principal); R11.10 Vomiting, unspecified; K50.90 Crohn's disease, unspecified, without complications
CPT/HCPCS: 36415; 80048; 80076; 82150; 83690; 85025; 99282